=== PATIENT | female | born 1980 | race Caucasian/White ===

== ENCOUNTER 2016-09-30 19:28 | Emergency (ER) | payer MEDICAID ==
[~2016-09-30] VITALS: Ht 160 cm; Wt 71.5 kg
[~2016-09-30 19:28] MED LIST: ACET1TAB40 PO; AUG875 PO; CEPH-443 PO; NPH10OT BOTH EARS; OFLO5DRO7 BOTH EARS; PREN1TAB9
[2016-09-30 20:07] VITALS: Ht 160 cm; Wt 71.5 kg
[2016-09-30] MEDS ORDERED: BACTDS PO (22:18)
[2016-09-30] MEDS ORDERED: CEPH-443 PO (22:18)
[2016-09-30] MEDS ORDERED: BEN25 PO (22:18)
[2016-09-30] MEDS ORDERED: HC30CR25 TOP (22:18)
[2016-09-30] MEDS ORDERED: NAPR-260 PO (22:19)
--- NOTE | 2016-10-01 00:18 | ERD ---
ER Documentation Chief Complaint Date/Time DATE: 10/01/16 TIME: 00:14 Chief Complaint right leg pain x 5 days, denies injury HPI Patient is a 35-year-old female who presents to the ED with redness to her inner thigh 5 days. She states that she got a bug bite to her inner thigh and states that it is red and painful. Denies streaking or radiation of pain. She also complains of right plantar pain 1 week. She denies injury or trauma. She states that when she pushes down on her right foot she has pain to her bottom feet. She is not taking any medication for symptoms. She denies fever or chills. She denies dysuria. Denies abdominal pain, nausea, vomiting, diarrhea. No other complaints. Denies leg pain or leg swelling. ROS All systems reviewed and are negative except as per history of present illness. Medications Home Meds Active Scripts Naproxen* (Naprosyn*) 500 Mg Tablet, 500 MG PO BID Y for PAIN AND/OR INFLAMMATION, #30 TAB Prov:JONNA VASQUEZ PA-C 09/30/16 Hydrocortisone* Topical (Hydrocortisone* Topical) 2.5%-28.3 Gm Cream..g., 1 APPLIC TOP BID, #1 TUB Prov:JONNA VASQUEZC 09/30/16 Diphenhydramine Hcl* (Benadryl*) 25 Mg Cap, 25 MG PO Q6, #30 CAP Prov:JONNA VASQUEZC 09/30/16 Cephalexin* (Keflex*) 500 Mg Capsule, 500 MG PO QID for 5 Days, CAP Prov:JONNA VASQUEZC 09/30/16 Sulfamethoxazole-Trimethoprim* (Bactrim* DS) 800-160 Mg Tab, 1 TAB PO BID for 5 Days, TAB Prov:CHETANTAJONNA GORDILLO-C 09/30/16 Acetaminophen-Codeine* (Acetaminophen-Cod #3*) 300-30 Mg Tab, 1 TAB PO Q4H Y for PAIN, #12 TAB Prov:LATOYA KENDALL MD 12/14/15 Ofloxacin* (Floxin* Otic) 0.3% -10 Ml Soln, 10 DROP BOTH EARS BID for 10 Days, BOTTLE Prov:LATOYA KENDALL MD 12/14/15 Cephalexin* (Keflex*) 500 Mg Capsule, 500 MG PO QID for 7 Days, CAP Prov:LATOYA KENDALL MD 12/14/15 Neomycin/Polymyxin/Hydrocort* (Cortisporin* Otic) 10 Ml Susp, 4 DROP BOTH EARS QID for 7 Days, EA Prov:REBECA ARVIZU PA-C 12/11/15 Reported Medications Amoxicillin/Clavulanate K* (Augmentin*) 875 Mg Tab, 875 MG PO BID 05/18/13 Vits W-Ca,Fe,Fa(<1MG) ( #2) 1 Tab Tablet 05/12/13 Allergies Allergies: Coded Allergies: No Known Allergies (Verified Allergy, Mild, 05/18/13) PMhx/Soc History of Surgery: Yes (C/SECTION X 3) Anesthesia Reaction: No Hx Neurological Disorder: No Hx Respiratory Disorders: No Hx Cardiac Disorders: No Hx Psychiatric Problems: No Hx Miscellaneous Medical Probl: No Hx Alcohol Use: No Hx Substance Use: No Hx Tobacco Use: No FmHx Family History: No coronary disease, No diabetes, No other Physical Exam Vitals Vital Signs Date Time Temp Pulse Resp B/P Pulse Ox O2 Delivery O2 Flow Rate FiO2 09/30/16 20:07 98.7 99 20 123/66 100 Physical Exam GENERAL: Well-developed, well-nourished female. Appears in no acute distress. HEAD: Normocephalic, atraumatic. EYES: Pupils are equally reactive bilaterally. EOMs grossly intact. No conjunctival erythema. ENT: Moist mucous membranes. No uvula deviation. No kissing tonsils. No exudates. NECK: Supple. No lymphadenopathy or thyromegaly. No meningismus. negative kernig. negative brudinski. LUNG: Clear to auscultation bilaterally. No rhonchi, wheezing, rales or coarse breath sounds. HEART: Regular rate and rhythm. No murmurs, rubs or gallops. NEUROLOGIC: Alert and oriented. Moving all four extremities. 5/5 strength in all extremities. Normal speech. Steady gait. Negative Homans sign. Dorsalis pedis and posterior tibialis pulses intact bilaterally. No step-offs or deformities of the right foot. Range of motion intact. SKIN: Normal color. Warm and dry. 3 x3 cm erythematous lesion on inner right thigh. no induration or fluctuance. superficial. tender to palpation. no streaking. no calf swelling. Capillary refill < 2 seconds Procedures/MDM ER COURSE: I kept the patient and/or family informed of laboratory and diagnostic imaging results throughout the emergency room course. MEDICAL DECISION MAKING: This is a 35-year-old female who presents with right foot pain and erythematous lesion on her right thigh. Vital signs were reviewed. Patient is afebrile. Patient is not hypoxic. Patient is not toxic or ill-appearing. Patient likely has an infected bug bite. I do not think further imaging studies is necessary at this time. No incision and drainage will be done today as there is no fluctuance or induration and is superficial. Low suspicion for necrotizing fasciitis, SJS, toxic epidermal necrolysis, Kawasaki, erythema multiforme, gangrene, scarlet fever, meningococcemia, sepsis, anaphylaxis, sepsis, deep space infection, or foreign body. Patient also likely has plantar fasciitis. Low suspicion for dislocation, fracture, septic joint, compartment syndrome, osteomyelitis, avascular necrosis, DVT, Achilles tendon rupture, cellulitis. At this time, unable to rule out any tendon and ligament injuries. DISCHARGE: At this time, patient is stable for discharge and outpatient management with no new complaints during the ER course. Patient was sent home with Bactrim, Keflex , Naprosyn, hydrocortisone cream and Benadryl.. Patient will be discharged home with instructions to recheck for new or worsening symptoms such as fever, nausea , weakness, LOC and to follow up with primary care in the next 1-2 days. Patient was advised to return to the ER for any new or worsening symptoms. Plan was discussed and patient and/or family understands and agrees. Home instructions were given. Departure Diagnosis: Primary Impression: Plantar fasciitis of right foot Additional Impression: Bug bite Encounter type: initial encounter Qualified Code: W57.XXXA - Bug bite, initial encounter Condition: Stable Patient Instructions: Treating Plantar Fasciitis, Plantar Fasciitis, Insect Bite Referrals: NO PRIMARY,CARE PHYSICIAN Additional Instructions: Llame al doctor MAANA y melody bradley ESTEFANÍA PARA DENTRO DE 1-2 SOMMER.Dgale a la secretaria que nosotros le instruimos hacer esta estefanía.Avise o llame si skinner condicin se empeora antes de la estefanía. Regresa aqui si peor o no mejor. JONNA VASQUEZ PA-C Oct 01, 2016 00:18
== END 2016-09-30 22:46 | disposition home or self-care (01) ==
LOC: FTE 19:28
DX: M72.2 Plantar fascial fibromatosis (principal); W57.XXXA Bitten or stung by nonvenomous insect and other nonvenomous arthropods, initial encounter; Y92.9 Unspecified place or not applicable
CPT/HCPCS: 99284

== ENCOUNTER 2017-04-05 11:12 | Emergency (ER) | payer MEDICAID ==
[~2017-04-05] VITALS: Wt 70.5 kg
[~2017-04-05 11:12] MED LIST changes: +BACTDS PO; +BEN25 PO; +HC30CR25 TOP; +NAPR-260 PO
[2017-04-05 12:24] LABS: URINE BLOOD (Dip) POC 1+ (NEGATIVE)
[2017-04-05] MEDS ORDERED: CEPHALEXIN 500 MG CAP PO ONE (12:30)
[2017-04-05] MEDS ORDERED: PHENAZOPYRIDINE 100 MG TAB PO ONE (12:30)
[2017-04-05] MEDS ORDERED: PHEN-538 PO (12:48)
[2017-04-05] MEDS ORDERED: CEPH-443 PO (12:48)
--- NOTE | 2017-04-05 12:52 | ERD ---
ER Documentation Chief Complaint Date/Time DATE: 04/05/17 TIME: 12:51 Chief Complaint dysuria since wednesday HPI This 36-year-old female presents with dysuria for last 3 days. She denies fevers, vomiting, denies any abdominal pain except mild suprapubic pain. She has a history of UTI remotely and it feels similar. She denies , vaginal discharge. ROS All systems reviewed and are negative except as per history of present illness. Medications Home Meds Active Scripts Phenazopyridine Hcl* (Pyridium*) 200 Mg Tab, 200 MG PO TID Y for URINARY PAIN, # 6 TAB Prov:LATOYA KENDALL MD 04/05/17 Cephalexin* (Keflex*) 500 Mg Capsule, 500 MG PO QID for 5 Days, CAP Prov:LATOYA KENDALL MD 04/05/17 Naproxen* (Naprosyn*) 500 Mg Tablet, 500 MG PO BID Y for PAIN AND/OR INFLAMMATION, #30 TAB Prov:JONNA VASQUEZ-C 09/30/16 Hydrocortisone* Topical (Hydrocortisone* Topical) 2.5%-28.3 Gm Cream..g., 1 APPLIC TOP BID, #1 TUB Prov:JONNA VASQUEZ PA-C 09/30/16 Diphenhydramine Hcl* (Benadryl*) 25 Mg Cap, 25 MG PO Q6, #30 CAP Prov:JONNA VASQUEZ PA-C 09/30/16 Cephalexin* (Keflex*) 500 Mg Capsule, 500 MG PO QID for 5 Days, CAP Prov:JONNA VASQUEZ PA-C 09/30/16 Sulfamethoxazole-Trimethoprim* (Bactrim* DS) 800-160 Mg Tab, 1 TAB PO BID for 5 Days, TAB Prov:CHETANTAJONNA GORDILLO PA-C 09/30/16 Acetaminophen-Codeine* (Acetaminophen-Cod #3*) 300-30 Mg Tab, 1 TAB PO Q4H Y for PAIN, #12 TAB Prov:LATOYA KENDALL MD 12/14/15 Ofloxacin* (Floxin* Otic) 0.3% -10 Ml Soln, 10 DROP BOTH EARS BID for 10 Days, BOTTLE Prov:LATOYA KENDALL MD 12/14/15 Cephalexin* (Keflex*) 500 Mg Capsule, 500 MG PO QID for 7 Days, CAP Prov:LATOYA KENDALL MD 12/14/15 Neomycin/Polymyxin/Hydrocort* (Cortisporin* Otic) 10 Ml Susp, 4 DROP BOTH EARS QID for 7 Days, EA Prov:REBECA ARVIZU PA-C 12/11/15 Reported Medications Amoxicillin/Clavulanate K* (Augmentin*) 875 Mg Tab, 875 MG PO BID 05/18/13 Vits W-Ca,Fe,Fa(<1MG) ( #2) 1 Tab Tablet 05/12/13 Allergies Allergies: Coded Allergies: No Known Allergies (Verified Allergy, Mild, 05/18/13) PMhx/Soc History of Surgery: Yes (C/SECTION X 3) Anesthesia Reaction: No Hx Neurological Disorder: No Hx Respiratory Disorders: No Hx Cardiac Disorders: No Hx Psychiatric Problems: No Hx Miscellaneous Medical Probl: No Hx Alcohol Use: No Hx Substance Use: No Hx Tobacco Use: No Smoking Status: Never smoker Physical Exam Vitals Vital Signs Date Time Temp Pulse Resp B/P Pulse Ox O2 Delivery O2 Flow Rate FiO2 04/05/17 11:20 98.1 55 18 139/70 99 Physical Exam Const: [], [id number]. Alert. Head: Atraumatic Eyes: Normal Conjunctiva ENT: Normal External Ears, Nose and Mouth. Neck: Full range of motion..~ No meningismus. Resp: Clear to auscultation bilaterally Cardio: Regular rate and rhythm, no murmurs Abd: Soft, minimal suprapubic tenderness. No rebound no masses. non distended. Normal bowel sounds Skin: No petechiae or rashes Back: No midline or flank tenderness Ext: No cyanosis, or edema Neur: Awake and alert Psych: Normal Mood and Affect Results 24 hrs Laboratory Tests Test 04/05/17 12:32 Bedside Urine pH (LAB) 6.5 Bedside Urine Protein (LAB) Negative Bedside Urine Glucose (UA) Negative Bedside Urine Ketones (LAB) Negative Bedside Urine Blood 1+ Bedside Urine Nitrite (LAB) Negative Bedside Urine Leukocyte Esterase (L 3+ Current Medications Medications (Trade) Dose Ordered Sig/Gisela Route PRN Reason Start Time Stop Time Status Last Admin Dose Admin Cephalexin (Keflex) 500 mg ONCE ONCE PO 04/05/17 12:30 04/05/17 12:31 DC 04/05/17 12:34 Phenazopyridine HCl (Pyridium) 200 mg ONCE ONCE PO 04/05/17 12:30 04/05/17 12:31 DC 04/05/17 12:34 Procedures/MDM Urine was shows 3+ leukocytes and hCG is negative. Patient was given Keflex and Pyridium here in the ED. Patient has signs and symptoms of acute uncomplicated cystitis without evidence of sepsis, signs of appendicitis, significant abdominal pain. She will be treated with Keflex and Pyridium and observation at home, return precautions and primary care follow-up. The patient was stable with no new complaints during the ER course. Clinically, there is no current evidence to suggest meningitis, sepsis, acute abdomen, pneumonia, acute coronary syndrome, pulmonary embolism, or any other emergent condition appearing to require further evaluation or hospitalization. The patient should certainly return for any new or worsening symptoms per the aftercare instructions. They should otherwise follow-up with her primary care doctor for reevaluation this week. Departure Diagnosis: Primary Impression: Urinary tract infection Urinary tract infection type: acute cystitis Hematuria presence: without hematuria Qualified Code: N30.00 - Acute cystitis without hematuria Condition: Stable Patient Instructions: Understanding Urinary Tract Infections (UTIs) Additional Instructions: Recheck for new or worsening symptoms-fever, vomiting, abdominal pain, or with primary care doctor. Drink fluids at home. LATOYA KENDALL MD Apr 05, 2017 12:52
== END 2017-04-05 13:00 | disposition home or self-care (01) ==
LOC: FTE 11:12
DX: N30.00 Acute cystitis without hematuria (principal)
CPT/HCPCS: 81003; Z7502; Z7610; 99283

== ENCOUNTER 2017-06-13 15:57 | Emergency (ER) | payer MEDICAID ==
[~2017-06-13] VITALS: Ht 157.5 cm; Wt 21.5 kg
[~2017-06-13 15:57] MED LIST changes: +PHEN-538 PO
[2017-06-13 16:01] VITALS: Ht 157.5 cm; Wt 21.5 kg
--- NOTE | 2017-06-13 17:48 | ERD ---
ER Documentation Chief Complaint Chief Complaint Complains of right ear pain x 2 days HPI 36-year-old female, previously healthy, presents to the emergency department complaining of worsening of pain on her right ear for 2 days. The pain is described as throbbing, constant, without radiation, rated 6/10. No treatment attempted at this time. The patient denies fevers, headache, otorrhea, rash. ROS A 12-point review of systems was performed and negative other than presented in the history of present illness. SYSTEMIC symptoms: no fever, chills, no night sweats, no weight loss EYE symptoms: No blurred vision, no eye discharge OTOLARYNGEAL symptoms: No hearing loss. + ear pain, no sore throat CARDIOVASCULAR symptoms: No chest pain or discomfort, no palpitations. PULMONARY symptoms: No dyspnea, no cough, no wheezing. GASTROINTESTINAL symptoms: No abdominal pain, no nausea, no vomiting, no diarrhea MUSCULOSKELETAL symptoms: No arthralgias, no muscle aches. NEUROLOGY symptoms: No confusion, no syncope, no numbness or tingling. SKIN: No rashes Medications Home Meds Active Scripts Neomycin/Polymyxin/Hydrocort* (Cortisporin* Otic) 10 Ml Susp, 4 DROP RIGHT EAR QID for 7 Days, EA Prov:LUIS MOYA MD 06/13/17 Phenazopyridine Hcl* (Pyridium*) 200 Mg Tab, 200 MG PO TID Y for URINARY PAIN, # 6 TAB Prov:LATOYA KENDALL MD 04/05/17 Cephalexin* (Keflex*) 500 Mg Capsule, 500 MG PO QID for 5 Days, CAP Prov:LATOYA KENDALL MD 04/05/17 Naproxen* (Naprosyn*) 500 Mg Tablet, 500 MG PO BID Y for PAIN AND/OR INFLAMMATION, #30 TAB Prov:JONNA VASQUEZ PA-C 09/30/16 Hydrocortisone* Topical (Hydrocortisone* Topical) 2.5%-28.3 Gm Cream..g., 1 APPLIC TOP BID, #1 TUB Prov:JONNA VASQUEZ PA-C 09/30/16 Diphenhydramine Hcl* (Benadryl*) 25 Mg Cap, 25 MG PO Q6, #30 CAP Prov:JONNA VASQUEZ PA-C 09/30/16 Cephalexin* (Keflex*) 500 Mg Capsule, 500 MG PO QID for 5 Days, CAP Prov:JONNA VASQUEZ PA-C 09/30/16 Sulfamethoxazole-Trimethoprim* (Bactrim* DS) 800-160 Mg Tab, 1 TAB PO BID for 5 Days, TAB Prov:JONNA VASQUEZ PA-C 09/30/16 Acetaminophen-Codeine* (Acetaminophen-Cod #3*) 300-30 Mg Tab, 1 TAB PO Q4H Y for PAIN, #12 TAB Prov:LATOYA KENDALL MD 12/14/15 Ofloxacin* (Floxin* Otic) 0.3% -10 Ml Soln, 10 DROP BOTH EARS BID for 10 Days, BOTTLE Prov:LATOYA KENDALL MD 12/14/15 Cephalexin* (Keflex*) 500 Mg Capsule, 500 MG PO QID for 7 Days, CAP Prov:LATOYA KENDALL MD 12/14/15 Neomycin/Polymyxin/Hydrocort* (Cortisporin* Otic) 10 Ml Susp, 4 DROP BOTH EARS QID for 7 Days, EA Prov:REBECA ARVIZU PA-C 12/11/15 Reported Medications Amoxicillin/Clavulanate K* (Augmentin*) 875 Mg Tab, 875 MG PO BID 05/18/13 Vits W-Ca,Fe,Fa(<1MG) ( #2) 1 Tab Tablet 05/12/13 Allergies Allergies: Coded Allergies: No Known Allergies (Verified Allergy, Mild, 05/18/13) PMhx/Soc History of Surgery: Yes (C/SECTION X 3) Anesthesia Reaction: No Hx Neurological Disorder: No Hx Respiratory Disorders: No Hx Cardiac Disorders: No Hx Psychiatric Problems: No Hx Miscellaneous Medical Probl: No Hx Alcohol Use: No Hx Substance Use: No Hx Tobacco Use: No Physical Exam Vitals Vital Signs Date Time Temp Pulse Resp B/P Pulse Ox O2 Delivery O2 Flow Rate FiO2 06/13/17 16:01 97.7 68 20 102/60 97 Physical Exam Patient is in no acute distress, vital signs stable. Alert and fully oriented. EYES: PERRLA, EOMI, Sclera and conjunctiva appear normal. EARS: Right ear: Erythematous canal with edema and tenderness. Tympanic membrane appears normal. Contralateral ear in normal limits THROAT: Normal oropharynx. NECK: Supple, No lymphadenopathy. Full ROM without pain or tenderness. HEART: RRR, no rubs, murmurs, clicks or gallops. LUNGS: Clear to auscultation. ABDOMEN: Soft, non-tender without masses or hepatosplenomegaly. EXTREMITIES: No edema bilaterally. BACK: Full ROM, no deformity, normal back exam NEURO: Cranial nerves grossly intact, no motor or sensory deficit Procedures/MDM 36-year-old female, previously healthy, presents with progressive right ear pain for the last 2 days Vital signs stable, Physical exam reveal right external canal with erythema, edema and tenderness. Differential diagnosis include but not limited to: Otitis: Infectious, allergic , fungal; cholesteatoma, foreign body. Low suspicion for malignant otitis or mastoiditis. Physical examination and clinical presentation consistent most likely with right otitis externa. During the ED course the patient remained stable, no new complaints. Results and clinical impression discussed with patient who agrees with management. The patient is stable to be treated outpatient and will be discharged home with a Rx for Cortisporin otic, some side effects of prescribed medications (headache, rash, nausea, vomiting, diarrhea, drowsiness, habituation , bleeding, hypertension, interactions with other medications) were reviewed. The patient was instructed to follow up with the primary care provider in the next 48h. If symptoms persist, worsen or new symptoms develop, then patient should return to the ED immediately. Instructions explained and given directly by me to the patient in Armenian with acknowledgment and demonstrated understanding. Disclaimer: Inadvertent spelling and grammatical errors are likely due to EHR/ dictation software use and do not reflect on the overall quality of patient care. Also, please note that the electronic time recorded on this note does not necessarily reflect the actual time of the patient encounter. Departure Diagnosis: Primary Impression: Right otitis externa Condition: Stable Patient Instructions: External Ear Infection (Adult) Additional Instructions: Muchas judie por [facility] para skinner servicio. Esperamos que en skinner visita a la ann de emergencia skinner problema medico haya sido solucionado y que se sienta mucho mejor. Para estar seguros que skinner mejoria sigue en proceso, le pedimos el favor de hacer bradley norma de seguimiento medico con skinner doctor primario en los proximos 2-4 sheridan. Lleve con usted estos documentos y las medicinas recetadas. Si calvin sintomas empeoran y no puede holger a skinner doctor, por favor regrese a ann de emergencia. En deena que usted no tenga un mdico de atencin primaria: Llame al mdico o clnica comunitaria de referencia que aparece abajo luba las horas de consultorio para hacer bradley norma para que le vean. CLINICAS: [place] [id number] [phone] [facility] [phone] [id number] [facility] [id number] [place] [id number] [phone] [place] [phone] [facility]. [phone] LUIS LARA MD Jun 13, 2017 17:48
[2017-06-13] MEDS ORDERED: NPH10OT RIGHT EAR (17:49)
== END 2017-06-13 18:10 | disposition home or self-care (01) ==
LOC: FTE 15:57
DX: H60.91 Unspecified otitis externa, right ear (principal)
CPT/HCPCS: 99283

== ENCOUNTER 2017-12-19 22:26 | Emergency (ER) | END 2017-12-19 23:35 | disposition home or self-care (01) ==

== ENCOUNTER 2018-07-18 12:41 | Emergency (ER) | payer MEDICAID ==
[~2018-07-18] VITALS: Wt 73.2 kg
[~2018-07-18 12:41] MED LIST changes: -NAPR-260 PO; +NAPR-985 PO; +NPH10OT RIGHT EAR
[2018-07-18 12:53] VITALS: BP 112/61; PULSE 60; RESP 18
[2018-07-18] MEDS ORDERED: ONDANSETRON (ODT) 4 MG TAB ODT STA (13:16)
[2018-07-18] MEDS ORDERED: ACETAMINOPHEN 325 MG TAB PO ONE (13:30)
[2018-07-18] MEDS ORDERED: ACET500C5 PO (14:17)
[2018-07-18] MEDS ORDERED: ONDA8TAB14 PO (14:17)
[2018-07-18] MEDS ORDERED: CEPH-443 PO (14:17)
--- NOTE | 2018-07-18 14:23 | ERD ---
ER Documentation Chief Complaint Chief Complaint AP x3d; +NV no D. no dysuria. worse w food+ at night HPI 37-year-old female presents with epigastric pain and vomiting for last 2 days. Is worse after eating. She denies diarrhea, urinary complaints, fevers. She denies known history of gallstones or intestinal disorders or previous similar complaints. ROS All systems reviewed and are negative except as per history of present illness. Medications Home Meds Active Scripts Cephalexin* (Keflex*) 500 Mg Capsule, 500 MG PO QID for 5 Days, CAP Prov:LATOYA KENDALL MD 07/18/18 Acetaminophen* (Tylophen*) 500 Mg Capsule, 1 CAP PO Q6H PRN for PAIN AND OR EL EVATED TEMP, #15 CAP Prov:LATOYA KENDALL MD 07/18/18 Ondansetron (Ondansetron Odt) 8 Mg Tab.rapdis, 8 MG PO Q6H PRN for NAUSEA AND/OR VOMITING, #8 TAB Prov:LATOYA KENDALL MD 07/18/18 Ofloxacin Otic (Ofloxacin Otic) 5 Ml Drops, 10 DROP BOTH EARS DAILY for 7 Days, #1 BOTTLE Prov:BLAINE RUSS PA-C 12/19/17 Neomycin/Polymyxin/Hydrocort* (Cortisporin* Otic) 10 Ml Susp, 4 DROP RIGHT EAR QID for 7 Days, EA Prov:LUIS MOYA MD 06/13/17 Phenazopyridine Hcl* (Pyridium*) 200 Mg Tab, 200 MG PO TID PRN for URINARY PAIN, #6 TAB Prov:LATOYA KENDALL MD 04/05/17 Cephalexin* (Keflex*) 500 Mg Capsule, 500 MG PO QID for 5 Days, CAP Prov:LATOYA KENDALL MD 04/05/17 Naproxen* (Naprosyn*) 500 Mg Tablet, 500 MG PO BID PRN for PAIN AND/OR INFLAMMATION, #30 TAB Prov:JONNA VASQUEZ PA-C 09/30/16 Hydrocortisone* Topical (Hydrocortisone* Topical) 2.5%-28.3 Gm Cream..g., 1 APPLIC TOP BID, #1 TUB Prov:JONNA VASQUEZ PA-C 09/30/16 Diphenhydramine Hcl* (Benadryl*) 25 Mg Cap, 25 MG PO Q6, #30 CAP Prov:JONNA VASQUEZ PA-C 09/30/16 Cephalexin* (Keflex*) 500 Mg Capsule, 500 MG PO QID for 5 Days, CAP Prov:JONNA VASQUEZ PA-C 09/30/16 Sulfamethoxazole-Trimethoprim* (Bactrim* DS) 800-160 Mg Tab, 1 TAB PO BID for 5 Days, TAB Prov:JONNA VASQUEZ PA-C 09/30/16 Acetaminophen-Codeine* (Acetaminophen-Cod #3*) 300-30 Mg Tab, 1 TAB PO Q4H PRN for PAIN, #12 TAB Prov:LATOYA KENDALL MD 12/14/15 Ofloxacin* (Floxin* Otic) 0.3% -10 Ml Soln, 10 DROP BOTH EARS BID for 10 Days, BOTTLE Prov:LATOYA KENDALL MD 12/14/15 Cephalexin* (Keflex*) 500 Mg Capsule, 500 MG PO QID for 7 Days, CAP Prov:LATOYA KENDALL MD 12/14/15 Neomycin/Polymyxin/Hydrocort* (Cortisporin* Otic) 10 Ml Susp, 4 DROP BOTH EARS QID for 7 Days, EA Prov:REBECA ARVIZU PA-C 12/11/15 Reported Medications Amoxicillin/Clavulanate K* (Augmentin*) 875 Mg Tab, 875 MG PO BID 05/18/13 Vits W-Ca,Fe,Fa(<1MG) ( #2) 1 Tab Tablet 05/12/13 Allergies Allergies: Coded Allergies: No Known Allergies (Verified Allergy, Mild, 05/18/13) PMhx/Soc History of Surgery: Yes (C/SECTION X 3) Anesthesia Reaction: No Hx Neurological Disorder: No Hx Respiratory Disorders: No Hx Cardiac Disorders: No Hx Psychiatric Problems: No Hx Miscellaneous Medical Probl: No Hx Alcohol Use: No Hx Substance Use: No Hx Tobacco Use: No FmHx Family History: No diabetes, No coronary disease, No other Physical Exam Vitals Vital Signs Date Temp Pulse Resp B/P (MAP) Pulse Ox O2 O2 Flow FiO2 Time Delivery Rate 07/18/18 97.6 60 18 112/61 99 12:53 (78) Physical Exam Const: No acute distress Head: Atraumatic Eyes: Normal Conjunctiva ENT: Normal External Ears, Nose and Mouth. Neck: Full range of motion. No meningismus. Resp: Clear to auscultation bilaterally Cardio: Regular rate and rhythm, no murmurs Abd: Soft, minimal epigastric tenderness. No exquisite Fernandez sign. No tenderness at McBurney's point., non distended. Normal bowel sounds Skin: No petechiae or rashes Back: No midline or flank tenderness Ext: No cyanosis, or edema Neur: Awake and alert Psych: Normal Mood and Affect Result Diagram: 07/18/18 1325 07/18/18 1324 Results 24 hrs Laboratory Tests Test 07/18/18 13:24 07/18/18 13:25 07/18/18 13:45 Sodium Level 145 mmol/L Potassium Level 4.3 mmol/L Chloride Level 103 mmol/L Carbon Dioxide Level 32 mmol/L Anion Gap 10 Blood Urea Nitrogen 16 mg/dl Creatinine 0.79 mg/dl Est Glomerular Filtrat > 60 mL/min Rate mL/min Glucose Level 88 mg/dl Calcium Level 9.2 mg/dl Total Bilirubin 0.1 mg/dl Direct Bilirubin 0.00 mg/dl Indirect Bilirubin 0.1 mg/dl Aspartate Amino Transf (AST/SGOT) 18 IU/L Alanine 17 IU/L Aminotransferase (ALT/SGPT) Alkaline Phosphatase 57 IU/L Total Protein 7.8 g/dl Albumin 4.2 g/dl Globulin 3.60 g/dl Albumin/Globulin Ratio 1.16 Lipase 101 U/L White Blood Count 5.5 10^3/ul Red Blood Count 4.95 10^6/ul Hemoglobin 13.0 g/dl Hematocrit 40.6 % Mean Corpuscular Volume 82.0 fl Mean Corpuscular Hemoglobin 26.3 pg Mean Corpuscular 32.0 g/dl Hemoglobin Concent Red Cell Distribution Width 13.1 % Platelet Count 256 10^3/UL Mean Platelet Volume 9.3 fl Immature Granulocytes % 0.200 % Neutrophils % 50.0 % Lymphocytes % 34.9 % Monocytes % 6.4 % Eosinophils % 8.0 % Basophils % 0.5 % Nucleated Red Blood Cells % 0.0 /100WBC Immature Granulocytes # 0.010 10^3/ul Neutrophils # 2.8 10^3/ul Lymphocytes # 1.9 10^3/ul Monocytes # 0.4 10^3/ul Eosinophils # 0.4 10^3/ul Basophils # 0.0 10^3/ul Nucleated Red Blood Cells # 0.0 10^3/ul Urine Color YELLOW Urine Clarity CLOUDY Urine pH 7.0 Urine Specific [place] 1.017 Urine Ketones NEGATIVE mg/dL Urine Nitrite NEGATIVE mg/dL Urine Bilirubin NEGATIVE mg/dL Urine Urobilinogen NEGATIVE mg/dL Urine Leukocyte Esterase TRACE [place]/ul Urine Microscopic RBC 4 /HPF Urine Microscopic WBC 13 /HPF Urine Squamous Epithelial Cells FEW /HPF Urine Amorphous Crystals FEW /HPF Urine Bacteria FEW /HPF Urine Hemoglobin 1+ mg/dL Urine Glucose NEGATIVE mg/dL Urine Total Protein NEGATIVE mg/dl POC Beta HCG, Qualitative NEGATIVE Current Medications Medications Dose Sig/Gisela Start Time Status Last (Trade) Ordered Route PRN Stop Time Admin Dose Reason Admin Ondansetron 8 mg ONCE STAT 07/18/18 DC 07/18/18 HCl (Zofran ODT 13:16 13:25 Odt) 07/18/18 13:18 650 mg ONCE ONCE 07/18/18 DC 07/18/18 Acetaminophen PO 13:30 13:25 (Tylenol 07/18/18 13:31 Tab) Cephalexin 500 mg ONCE ONCE 07/18/18 (Keflex) PO 14:30 07/18/18 14:31 Procedures/MDM Patient given Zofran and Tylenol. Urine shows leukocyte esterase, white blood cells. HCG negative. CBC and CMP and lipase showed no significant acute abnormalities. Right upper quadrant ultrasound normal. Patient given Keflex 500 mg by mouth. Patient had a reassuring abdominal exam on serial exam. Patient presents with epigastric pain, vomiting, last 3 days. She has no signs or symptoms suggest appendicitis, surgical abdomen, pancreatitis. She signs of UTI and will be treated for this although doubt cause of her symptoms. She has no evidence of cholecystitis, choledocholithiasis, additional emergent causes of presenting complaints. We will treat with Keflex, Zofran, Tylenol, further observation at home and return precautions. The patient was stable with no new complaints during the ER course. Clinically, there is no current evidence to suggest meningitis, sepsis, acute abdomen, pneumonia, stroke, acute coronary syndrome, pulmonary embolism, aortic dissection or any other emergent condition appearing to require further evaluation or hospitalization. Patient counseled regarding my diagnostic impression and care plan. Prior to discharge all questions answered. Pt agrees with treatment plan and understands strict return precautions. Pt is instructed to follow up with primary care provider within 24- 48 hours. Precautionary instructions provided including instructions to return to the ER if not improving or for any worsening or changing symptoms or concerns. Departure Diagnosis: Primary Impression: UTI (urinary tract infection) Urinary tract infection type: acute cystitis Hematuria presence: without hematuria Qualified Codes: N30.00 - Acute cystitis without hematuria Additional Impression: Abdominal pain Abdominal location: epigastric Qualified Codes: R10.13 - Epigastric pain Condition: Stable Patient Instructions: Abdominal Pain, Understanding Urinary Tract Infections (UTIs) Referrals: NO PRIMARY,CARE PHYSICIAN (PCP) Additional Instructions: hay infeccion en orina y vamos a tratar, lokesh otro examines normal hoy. Cheque otro vez con skinner doctor primario en el proximo sheridan or regresa para mas o nueva simptomas. vomito probablamente un virus que dura 2-4 sheridan. cheque otro vez en el proximo crow para mas simptomas- vomito, dolor, sb, problemas con respirando, o con skinner doctor primario. LATOYA KENDALL MD Jul 18, 2018 14:22
[2018-07-18] MEDS ORDERED: CEPHALEXIN 500 MG CAP PO ONE (14:30)
[2018-07-29] MEDS ORDERED: D-ME473S2 PO (09:03)
[2018-07-29] MEDS ORDERED: AMOX500C2 PO (09:03)
== END 2018-07-18 14:40 | disposition home or self-care (01) ==
LOC: FTE 12:41
DX: N30.00 Acute cystitis without hematuria (principal)
CPT/HCPCS: 36415; 76705; 80053; 81001; 81025; 83690; 85025; Z7502; Z7610